=== PATIENT | female | born 1935 | race Caucasian/White ===

== ENCOUNTER 2019-12-30 19:40 | Inpatient (IN) | payer MEDICARE, BC ==
[~2019-12-30] VITALS: Ht 152.4 cm; Wt 72.1 kg
[2019-12-30] MEDS ORDERED: MORPHINE SULFATE INJ 2 MG/ML DISP.SYRIN IV ONE (20:00)
[2019-12-30] MEDS ORDERED: ONDANSETRON HCL/PF 4 MG/2 ML VIAL IVP ONE (20:00)
[2019-12-30] MEDS ORDERED: MORPHINE SULFATE INJ 4 MG/ML DISP.SYRIN ONE (20:01)
[2019-12-30] MEDS ORDERED: ONDANSETRON HCL/PF 4 MG/2 ML VIAL ONE (20:01)
[2019-12-30 20:26] LABS: BASOPHILS # (AUTO) 0.1 /CMM (0.0-0.2); BASOPHILS % (AUTO) 0.5 % (0.0-2.0); HEMATOCRIT 43 % (33-45); HEMOGLOBIN 13.9 g/dL (11.5-14.8); LYMPHOCYTES # (AUTO) 1.6 /CMM (0.8-4.8); MEAN CORPUSCULAR HGB CONC 33 g/dl (31.0-36.0); MEAN CORPUSCULAR VOLUME 88 fL (82-100); MONOCYTES # (AUTO) 0.9 /CMM (0.1-1.30); MONOCYTES % (AUTO) 5.1 % (2.0-12.0); NEUTROPHILS # (AUTO) 15.1 /CMM (1.8-8.9); NEUTROPHILS % (AUTO) 84.4 % (43.0-81.0); PLATELET COUNT (AUTO) 309 /CMM (150-450); RED BLOOD CELL COUNT(AUTO) 4.83 MIL/uL (4.0-5.2); WHITE BLOOD COUNT (AUTO) 17.9 K/uL (4.3-11.0)
--- NOTE | 2019-12-30 20:30 | NUR ---
PATIENT CAME TO ER BED 9 C/O FALL AT HOME. PATIENT LIVES BY HERSELF AND WAS FOUND BY DAUGHTER. PATIENT HAS RIGHT SHOUDLER PAIN WITH LIMITED RANGE OF MOTION. PATIENT IS AAOX4. AMBULATORY WITH STEADY GAIT. PATIENT IS BREATHING EVENLY AND UNLABORED ON ROOM AIR. CONNECTED TO THE CARDIC MONITOR.
[2019-12-30 20:35] LABS: CALCIUM, SERUM 9.1 mg/dL (8.5-10.1); CARBON DIOXIDE 25 mmol/L (21-32); CHLORIDE 98 mmol/L (98-107); CREATININE 1.1 mg/dL (0.6-1.3); GLUCOSE 140 mg/dL (74-106); POTASSIUM 3.6 mmol/L (3.5-5.1); SODIUM SERUM 133 mmol/L (136-145); UREA NITROGEN, BLOOD 22 mg/dL (7-18)
--- NOTE | 2019-12-30 20:37 | NUR ---
PATIENT TAKEN TO CT.
--- NOTE | 2019-12-30 20:39 | NUR ---
DAUGHTER'S PHONE NUMBER, PRASANNA
[2019-12-30 20:41] LABS: ALANINE AMINOTRANSFERASE 22 U/L (12-78); ALBUMIN 4.3 g/dL (3.4-5.0); ALKALINE PHOSPHATASE 57 U/L (46-116); ASPARTATE AMINOTRANSFERASE 27 U/L (15-37); BILIRUBIN,DIRECT 0.2 mg/dL (0.0-0.2); TOTAL PROTEIN, SERUM 8.5 g/dL (6.4-8.2)
--- NOTE | 2019-12-30 20:53 | NUR ---
PT RETURNED FROM CT
--- NOTE | 2019-12-30 21:08 | NUR ---
DR. ROBERTS SPEAKING WITH NORRIS MCNALLY NP REGARDING ADMISSION
--- NOTE | 2019-12-30 21:09 | NUR ---
MARCI KAUR SPOKE WITH ARMANDO SHORT
--- NOTE | 2019-12-30 21:15 | NUR ---
DR. ROBERTS SPEAKING WITH ORTHO EXTRUSION DIE REPAIRER DR. ANGELES
[2019-12-30] MEDS ORDERED: hydrALAZINE HCL IV 20 MG VIAL ONE (21:39)
--- NOTE | 2019-12-30 21:49 | NUR ---
TRIED CALLING FOR REPORT, NURSE WILL CALL ME BACK EBCAUSE BUSY
[2019-12-30] MEDS ORDERED: hydrALAZINE HCL IV 20 MG VIAL IV PRN (22:00)
[2019-12-30] MEDS ORDERED: ESCI10TA PO (22:11)
--- NOTE | 2019-12-30 22:13 | NUR ---
REPORT GIVEN TO BONNY AMEZCUA FOR DEION.
[2019-12-30 22:30] VITALS: BP 118/84
[2019-12-30] MEDS ORDERED: LORAZEPAM INJ 2 MG/ML VIAL IV PRN (22:30)
[2019-12-30] MEDS ORDERED: ONDANSETRON HCL/PF 4 MG/2 ML VIAL IVP PRN (22:30)
[2019-12-30] MEDS ORDERED: ACETAMINOPHEN 650 MG/SUPP.RECT RC PRN (22:30)
[2019-12-30] MEDS ORDERED: ENALAPRILAT INJ (1.25 MG/ML) 1.25 MG/ML VIAL IV PRN (22:30)
[2019-12-30] MEDS ORDERED: Z GUARD REMEDY 2 OZ OINT TP PRN (22:30)
--- NOTE | 2019-12-30 22:32 | NUR ---
PATIENT TAKEN UP TO ASSIGNED ROOM FOR DEION.
--- NOTE | 2019-12-30 22:35 | NUR ---
OFFICE ASSTTOOL TECHNICIAN NOTES PATIENT ADMITTED FOR RIGHT HUMERUS FRACTURE. TRANSFERRED FROM ER VIA ACLS PROTOCOL IN STABLE CONDITION. A/OX4. ON 4L NC; NO S/S OF ACUTE RESPIRATORY DISTRESS; BREATHING IS EVEN AND UNLABORED. TELE MONITOR READING NSR, HEART RATE 68. PATIENT C/O SHOULDER PAIN RATED 5-6/10. SLING PRESENT ON RIGHT ARM. IV PRESENT ON LEFT AC, SIZE 20, INTACT & PATENT, HEP LOCKED. SKIN DRY AND INTACT; NO WOUNDS NOTED. MRSA SWAB COMPLETED IN ER. MED RECONCILIATION COMPLETED. ADMITTING ORDERS RECEIVED FROM MANAGER TRAVEL ICER HAND, RANDALL MCNALLY. BELONGINGS REVIEWED; PATIENT WEARING TWO BRACELETS ON LEFT WRIST. SAFETY MEASURES IN PLACE AND PATIENT'S NEEDS MET. BED LOCKED, ALARM ON, SIDE RAILS X3, CALL LIGHT WITHIN REACH. WILL CONTINUE TO MONITOR.
[2019-12-30] MEDS ORDERED: CIPR250S3 PO (22:48)
[2019-12-30 23:20] VITALS: BP 118/84
[2019-12-30] MEDS ORDERED: LEVO25TA7 PO (23:20)
--- NOTE | 2019-12-30 23:48 | NUR ---
BAND SCROLL SAW OPERATOR NOTES PATIENT'S VTE SCORE 3. DVT PUMPS ORDERED. PER DEPUTY ADMINISTRATOR, PENNY MCNALLY, NO CHEMICAL PROPHYLAXIS AT THIS TIME DUE TO POSSIBLE SURGERY.
[2019-12-30] MEDS: IV D5/0.45 NACL 1,000 ML IV PRN (23:53)
[2019-12-31] VITALS (9 sets, daily range): BP systolic 129–155; BP diastolic 67–82
[2019-12-31] MEDS: MORPHINE SULFATE INJ 2 MG/ML DISP.SYRIN IV PRN ×3 (01:40→21:47)
[2019-12-31 06:02] LABS: BASOPHILS % (AUTO) 0.3 % (0.0-2.0); EOSINOPHILS % (AUTO) 0.1 % (0.0-6.0); HEMATOCRIT 36 % (33-45); HEMOGLOBIN 12.1 g/dL (11.5-14.8); LYMPHOCYTES # (AUTO) 1.3 /CMM (0.8-4.8); LYMPHOCYTES % (AUTO) 10.7 % (20.0-44.0); MEAN CORPUSCULAR HGB CONC 34 g/dl (31.0-36.0); MEAN CORPUSCULAR VOLUME 86 fL (82-100); MONOCYTES # (AUTO) 1.1 /CMM (0.1-1.30); NEUTROPHILS # (AUTO) 9.9 /CMM (1.8-8.9); NEUTROPHILS % (AUTO) 79.9 % (43.0-81.0); PLATELET COUNT (AUTO) 268 /CMM (150-450); RED BLOOD CELL COUNT(AUTO) 4.21 MIL/uL (4.0-5.2); WHITE BLOOD COUNT (AUTO) 12.4 K/uL (4.3-11.0)
[2019-12-31 06:10] LABS: BILIRUBIN,TOTAL 1.3 mg/dL (0.2-1.0); PHOSPHORUS 4.1 mg/dL (2.5-4.9); POTASSIUM 4.1 mmol/L (3.5-5.1)
[2019-12-31 06:29] LABS: THYROID STIMULATING HORMONE 1.235 uIU/mL (0.358-3.74)
--- NOTE | 2019-12-31 06:42 | NUR ---
CORRECTIONAL CLASSIFICATION COUNSELOR CLOSING NOTES PATIENT RESTING COMFORTABLY IN BED. A/OX4. ON 3L NC; NO S/S OF ACUTE RESPIRATORY DISTRESS; BREATHING IS EVEN AND UNLABORED. TELE MONITOR READING NSR, HEART RATE 61. PATIENT C/O HAND PAIN BUT STATES PAIN IS TOLERABLE AT THIS TIME. RIGHT ARM SLING REMAINS PRESENT. IV PRESENT ON LEFT AC, SIZE 20, INTACT & PATENT WITH D5 1/2 NS RUNNING AT 75 ML/HR. SAFETY MEASURES IN PLACE AND PATIENT'S NEEDS MET. BED LOCKED, ALARM ON, SIDE RAILS X3, CALL LIGHT WITHIN REACH. WILL ENDORSE TO DAY SHIFT RN PLAN OF CARE.
[2019-12-31 06:46] LABS: ALBUMIN 3.6 g/dL (3.4-5.0); CALCIUM, SERUM 8.5 mg/dL (8.5-10.1); MAGNESIUM 2.4 mg/dL (1.8-2.4); TOTAL PROTEIN, SERUM 7.3 g/dL (6.4-8.2)
--- NOTE | 2019-12-31 07:10 | NUR ---
COMMERCIAL MAINTENANCE TECHNICIAN NOTES RECEIVED PATIENT IN BED ALERT AND AWAKE ORIENTED X4. HOB ELEVATED. ON O2 AT 3L/MIN VIA NC. ON TELE MONITORING SR: 63. LEFT AC # 20 INTACT AND PATENT INFUSING D5 1/2 NS AT 75ML/HR. RIGHT SLING REMAINS IN PLACE. AWAITING FOR ORTHO CONSULT. BED IN LOWEST POSITION, LOCKED. BED ALARM ON. ABLE TO VERBALIZE NEEDS. FREQUENT VISUAL CHECK DONE.
[2019-12-31] MEDS: LEVOTHYROXINE SODIUM 25 MCG TABLET PO SCH (07:30)
[2019-12-31] MEDS: ESCITALOPRAM OXALATE (10 MG) 10 MG TABLET PO SCH ×2 (09:00→17:28)
[2019-12-31] MEDS: PANTOPRAZOLE 40 MG VIAL IV SCH (09:05)
[2019-12-31 10:46] LABS: IRON, SERUM 37 ug/dl (50-175); TOTAL IRON BINDING CAPACITY 373 ug/dl (250-450)
[2019-12-31 10:57] LABS: FERRITIN 96 ng/mL (8-388)
[2019-12-31] MEDS: IV D5/0.45 NACL 1,000 ML IV PRN (13:52)
--- NOTE | 2019-12-31 14:13 | NUR ---
CALL CENTER DISPATCHER NOTES CALLED DR. MINAYA'S OFFICE FOR ORTHO CONSULT AT [phone].
--- NOTE | 2019-12-31 16:39 | NUR ---
TAX FORM PREPARER NOTES CALLED DR. MINAYA'S OFFICE AGAIN FOR ORTHO CONSULT AT [phone]. STILL AWAITING FOR CALL BACK.
--- NOTE | 2019-12-31 19:34 | NUR ---
PIPE ORGAN MECHANIC APPRENTICE NOTES RECEIVED A CALL FROM DR. MINAYA AND SAID HE WILL COME AND SEE PATIENT TONIGHT.
--- NOTE | 2019-12-31 19:37 | NUR ---
BOOKKEEPING MACHINE OPERATOR NOTES PATIENT RESTING COMFORTABLY IN BED. HOB ELEVATED. NO S/S OF RESPIRATORY DISTRESS. OFFERRED PATIENT PAIN MED THROUGHOUT THE SHIFT BUT STRONGLY REFUSED DESPITE OF EDUCATION PROVIDED. LEFT AC # 20 INTACT AND PATENT INFUSING D5 1/2 NS AT 75ML/HR KAREN WELL. RIGHT ARM SLING REMAINS IN PLACE. BED IN LOWEST POSITION, LOCKED. BED ALARM ON. ABLE TO VERBALIZE NEEDS. FREQUENT VISUAL CHECK DONE. IN NO APPARENT DISTRESS.
--- NOTE | 2019-12-31 19:42 | NUR ---
KEG RAISER OPENING NOTES PATIENT AWAKE IN BED. A/OX4. ON 3L NC; NO S/S OF ACUTE RESPIRATORY DISTRESS; BREATHING IS EVEN AND UNLABORED. TELE MONITOR READING NSR. ARM SLING PRESENT ON RIGHT ARM. PATIENT C/O RIGHT SHOULDER PAIN HOWEVER IS REFUSING PAIN MEDICATION AT THIS TIME. IV PRESENT ON LEFT AC, SIZE 20, INTACT & PATENT WITH D5 1/2 NS RUNNING AT 75 ML/HR. SAFETY MEASURES IN PLACE AND PATIENT'S NEEDS MET. BED LOCKED, ALARM ON, SIDE RAILS X3, CALL LIGHT WITHIN REACH. WILL CONTINUE TO MONITOR.
--- NOTE | 2019-12-31 20:01 | NUR ---
LEARNING ENGINEER NOTES DR. MINAYA AT THE BEDSIDE WITH PATIENT
--- NOTE | 2019-12-31 21:47 | NUR ---
CONSTRUCTION TECH NOTES PATIENT C/O RIGHT SHOULDER PAIN. ADMINISTERED PRN MORPHINE 2MG IV. VITAL SIGNS- BP: 153/71, HR: 62. SAFETY MEASURES IN PLACE AND PATIENT'S NEEDS MET. CALL LIGHT WITHIN REACH. WILL CONTINUE TO MONITOR.
[2020-01-01] VITALS: BP 146/68
[2020-01-01 02:10] VITALS: BP 152/70
[2020-01-01] MEDS: MORPHINE SULFATE INJ 2 MG/ML DISP.SYRIN IV PRN ×2 (02:14→11:47)
--- NOTE | 2020-01-01 02:14 | NUR ---
STUDENT SUCCESS COUNSELOR NOTES PATIENT C/O RIGHT SHOULDER PAIN RATED 10/10. ADMINISTERED PRN MORPHINE 2MG IV. VITAL SIGNS- BP: 152/70, HR: 58. SAFETY MEASURES IN PLACE AND PATIENT'S NEEDS MET. CALL LIGHT WITHIN REACH. WILL CONTINUE TO MONITOR.
[2020-01-01 04:00] VITALS: BP 142/65
[2020-01-01 06:08] LABS: BASOPHILS # (AUTO) 0.1 /CMM (0.0-0.2); BASOPHILS % (AUTO) 0.5 % (0.0-2.0); EOSINOPHILS % (AUTO) 2.7 % (0.0-6.0); HEMATOCRIT 35 % (33-45); HEMOGLOBIN 11.9 g/dL (11.5-14.8); LYMPHOCYTES # (AUTO) 1.6 /CMM (0.8-4.8); LYMPHOCYTES % (AUTO) 15.1 % (20.0-44.0); MEAN CORPUSCULAR HGB CONC 34 g/dl (31.0-36.0); MEAN CORPUSCULAR VOLUME 86 fL (82-100); MONOCYTES # (AUTO) 1.3 /CMM (0.1-1.30); MONOCYTES % (AUTO) 11.5 % (2.0-12.0); NEUTROPHILS # (AUTO) 7.7 /CMM (1.8-8.9); NEUTROPHILS % (AUTO) 70.2 % (43.0-81.0); PLATELET COUNT (AUTO) 233 /CMM (150-450); RED BLOOD CELL COUNT(AUTO) 4.05 MIL/uL (4.0-5.2); WHITE BLOOD COUNT (AUTO) 10.9 K/uL (4.3-11.0)
[2020-01-01 06:14] LABS: ALANINE AMINOTRANSFERASE 20 U/L (12-78); ALBUMIN 3.2 g/dL (3.4-5.0); ALKALINE PHOSPHATASE 47 U/L (46-116); ASPARTATE AMINOTRANSFERASE 21 U/L (15-37); BILIRUBIN,TOTAL 1.7 mg/dL (0.2-1.0); CALCIUM, SERUM 8.3 mg/dL (8.5-10.1); CARBON DIOXIDE 27 mmol/L (21-32); CHLORIDE 99 mmol/L (98-107); CREATININE 0.8 mg/dL (0.6-1.3); GLUCOSE 117 mg/dL (74-106); MAGNESIUM 2.1 mg/dL (1.8-2.4); PHOSPHORUS 2.8 mg/dL (2.5-4.9); POTASSIUM 3.7 mmol/L (3.5-5.1); SODIUM SERUM 133 mmol/L (136-145); TOTAL PROTEIN, SERUM 6.4 g/dL (6.4-8.2); UREA NITROGEN, BLOOD 14 mg/dL (7-18)
[2020-01-01] MEDS: LEVOTHYROXINE SODIUM 25 MCG TABLET PO SCH (06:44)
--- NOTE | 2020-01-01 07:10 | NUR ---
CERTIFIED MEDICATION TECHNICIAN CLOSING NOTES PATIENT AWAKE IN BED. A/OX4. ON 3L NC; NO S/S OF ACUTE RESPIRATORY DISTRESS; BREATHING IS EVEN AND UNLABORED. TELE MONITOR READING NSR. PATIENT ABLE TO AMBULATE TO BATHROOM WITH STANDBY ASSIST TWICE DURING SHIFT. SAFETY MEASURES IN PLACE AND PATIENT'S NEEDS MET. BED LOCKED, SIDE RAILS X2, CALL LIGHT WITHIN REACH. ENDORSED TO DAY SHIFT RN PLAN OF CARE.
--- NOTE | 2020-01-01 07:20 | NUR ---
POCKETBOOK MAKER NOTES RECEIVED PATIENT UP IN BATHROOM ASSISTED BY PRIMARY NURSE. ALERT AND AWAKE ORIENTED X4. AMBULATORY WITH UNSTEADY GAIT. ON ROOM AIR WITH SPO2 OF 98%. REMAIN ON TELE MONITORING SR: 61. LEFT AC # 20 INTACT AND PATENT INFUSING D5 1/2 NS AT 75ML/HR. RIGHT SLING REMAINS IN PLACE. BED IN LOWEST POSITION, LOCKED. BED ALARM ON. ABLE TO VERBALIZE NEEDS. FREQUENT VISUAL CHECK DONE.
[2020-01-01] MEDS: ESCITALOPRAM OXALATE (10 MG) 10 MG TABLET PO SCH (08:18)
[2020-01-01] MEDS: PANTOPRAZOLE 40 MG VIAL IV SCH (08:18)
[2020-01-01 08:50] VITALS: BP 154/69
[2020-01-01] MEDS ORDERED: FERR325T23 PO (14:00)
[2020-01-01] MEDS ORDERED: SOD FERRIC GLUC 125 MG in IV NS 0.9% 100 ML IV SCH (14:00)
--- NOTE | 2020-01-01 14:00 | NUR ---
MS RN NOTES PATIENT FOR DISCHARGE, DISCHARGE INSTRUCTIONS/EDUCATION/PACKET GIVEN TO PATIENT AND VERBALIZES UNDERSTANDING. ALL BELONGINGS ACCOUNTED FOR. IV ACCESS REMOVED WITH CATHETER TIP INTACT WITH GAUZE DRESSING APPLIED. RIGHT SHOULDER SLINGS REMAINS IN PLACE. PATIENT PICKED UP BY DAUGHTER AND SON IN [place] AND LEFT IN STABLE CONDITION, IN NO S/S OF DISTRESS.
[2020-01-02] MEDS ORDERED: PANTOPRAZOLE 40 MG/PACK PACK PO SCH (09:00)
[2020-01-02 14:07] LABS: *SPE A/G RATIO 1.1 (0.7-1.7); *SPE ALBUMIN 3.6 g/dL (2.9-4.4); *SPE ALPHA-1-GLOBULIN 0.3 g/dL (0.0-0.4); *SPE ALPHA-2-GLOBULIN 0.7 g/dL (0.4-1.0); *SPE BETA GLOBULIN 1.2 g/dL (0.7-1.3); *SPE GLOBULIN, TOTAL 3.4 g/dL (2.2-3.9); *SPE M-SPIKE Not Observed g/dL (Not Observed); *SPEGAMMA GLOBULIN 1.2 g/dL (0.4-1.8)
== END 2020-01-01 14:00 | disposition home health service (06) | DRG 563 ==
LOC: ER 19:41 → TELE 21:29 → MED 01-01 08:22
PROVIDERS: ADMIT Nurse Practitioner Acute Care
DX: S42.291A Other displaced fracture of upper end of right humerus, initial encounter for closed fracture (principal); D68.69 Other thrombophilia; N17.9 Acute kidney failure, unspecified; R55 Syncope and collapse; W18.30XA Fall on same level, unspecified, initial encounter; Y92.008 Other place in unspecified non-institutional (private) residence as the place of occurrence of the external cause; Z66 Do not resuscitate; E03.9 Hypothyroidism, unspecified; R73.9 Hyperglycemia, unspecified; I10 Essential (primary) hypertension; F32.9 Major depressive disorder, single episode, unspecified; D72.829 Elevated white blood cell count, unspecified
CPT/HCPCS: 36415; 70450-TC; 71045-TC; 72125-TC; 73030-TC; 73130-TC; 80048-TC; 80053-TC; 80061-TC; 80076-TC; 82728-TC; 83540-TC; 83735-TC; 84100-TC; 84155; 84165; 84439-TC; 84443-TC; 84484-TC; 85025-TC; 85652-TC; 85730-TC; 87081-TC; 93307-TC; 97112-TC; 97116-TC; 97530-TC; A4565; C9113; C9803; G0378; G0480; J0360; J2270; J2405; J2916; J3490; J7030

== ENCOUNTER 2023-09-13 17:58 | Emergency (ER) | payer MEDICARE, BC ==
[~2023-09-13] VITALS: Ht 152.4 cm; Wt 54.0 kg
[~2023-09-13 17:58] MED LIST: ESCI10TA PO; FERR325T23 PO; LEVO25TA7 PO
[2023-09-13 19:26] VITALS: BP 148/71; TEMP 98.7; O2SAT 100
== END 2023-09-13 19:27 | disposition left against medical advice (07) ==
LOC: ER 18:02
DX: S09.8XXA Other specified injuries of head, initial encounter (principal); R55 Syncope and collapse; M25.551 Pain in right hip; E03.9 Hypothyroidism, unspecified; E78.5 Hyperlipidemia, unspecified; Z87.448 Personal history of other diseases of urinary system; Z87.39 Personal history of other diseases of the musculoskeletal system and connective tissue; Z88.8 Allergy status to other drugs, medicaments and biological substances; Z60.2 Problems related to living alone; W18.39XA Other fall on same level, initial encounter; Y93.89 Activity, other specified; Y92.89 Other specified places as the place of occurrence of the external cause; Y99.8 Other external cause status